=== PATIENT | female | born 1955 | race Caucasian/White ===

== ENCOUNTER 2016-12-03 22:57 | Emergency (ER) | payer OTHER ==
[~2016-12-03] VITALS: Ht 152.4 cm; Wt 127.0 kg
[~2016-12-03 22:57] MED LIST: ALBUTEROL INHALER; COQ10; HUMALOG100 UNIT/2 SQ; JANUVIA25 M1 PO; LANTUS 3 M100 UNITS1 SC; LANTUS100 UNIT/1 SQ; LOSARTAN; NABUMETONE500 M1 PO; POTASSIUM OTC; PRAVASTATIN SOD10 MG PO; TRANDOLAPRIL; VIT D; ZETIA10 MG PO; [UNRECOGNIZED DRUG - REMARK]
[2016-12-03] MEDS ORDERED: CLARITIN-D 21 TABLET PO (23:23)
[2016-12-03] MEDS ORDERED: FLONASE16 G1 BOTH NARES (23:23)
[2016-12-03 23:51] VITALS: BP 145/72
== END 2016-12-03 23:56 | disposition home or self-care (01) ==
LOC: EME 22:57 → RME 22:57
DX: H65.93 Unspecified nonsuppurative otitis media, bilateral (principal)
CPT/HCPCS: 99281; 99284

== ENCOUNTER 2018-01-25 10:20 | Observation (INO) | payer OTHER ==
[~2018-01-25] VITALS: Ht 152.4 cm; Wt 130.2 kg
[~2018-01-25 10:20] MED LIST changes: +CLARITIN-D 21 TABLET PO; +FLONASE16 G1 BOTH NARES; +HUMALOG100 UNIT/2 SC; -HUMALOG100 UNIT/2 SQ; +JANUVIA100 MG PO; -JANUVIA25 M1 PO
[2018-01-25 11:12] LABS: HEMATOCRIT 35.2 % (36.0-46.0); MCH 28.3 PG (29.0-34.0); MCHC 31.3 G/DL (30.0-36.0); MCV 90.5 FL (83-99); PLATELET COUNT 145 K/uL (156-360); RBC DIS.WIDTH-CV 14.2 % (11.8-14.6); RBC DIS.WIDTH-SD 47.1 % (39-53); RED BLOOD COUNT 3.89 M/uL (3.80-5.20)
[2018-01-25 11:21] LABS: CHLORIDE 105 mEq/L (99-109); POTASSIUM 3.7 mEq/L (3.7-5.4); SODIUM 142 mEq/L (136-147)
[2018-01-25 11:23] LABS: GLUCOSE 65 mg/dL (70-99)
[2018-01-25 11:27] LABS: CREATININE 1.4 mg/dL (0.6-1.3); GFR ESTIMATE (CALCULATED) 41 mL/min/
[2018-01-25 11:28] LABS: UREA NITROGEN (BUN) 39 mg/dL (9-23)
[2018-01-25 12:11] LABS: TROP-I INTERPRETATION NEGATIVE; TROPONIN-I 0.05 ng/mL (0.0-0.30)
[2018-01-25] MEDS ORDERED: K-TAB ER8 MEQ PO (14:54)
[2018-01-25] MEDS ORDERED: COENZYME Q1010 M1 PO (14:55)
[2018-01-25] MEDS ORDERED: HYZAAR 100-21 TABLET PO (14:56)
[2018-01-25] MEDS ORDERED: VITAMIN D31000 UNI2 PO (14:56)
[2018-01-25] MEDS ORDERED: NEURONTIN300 MG PO (14:59)
[2018-01-25] MEDS ORDERED: LANTUS 3 M100 UNITS1 SC (15:06)
[2018-01-25] MEDS ORDERED: LASIX20 MG PO (15:08)
[2018-01-25 15:30] LABS: MAGNESIUM 2.1 mg/dL (1.3-2.7)
[2018-01-25 15:35] LABS: PHOSPHORUS 2.7 mg/dL (2.5-4.9)
[2018-01-25] MEDS ORDERED: ADVIL,NUPRIN,M200 MG PO (15:36)
[2018-01-25] MEDS ORDERED: PEPCID20 MG PO (15:36)
[2018-01-25 16:46] VITALS: BP 142/71
[2018-01-25 17:19] LABS: TROP-I INTERPRETATION NEGATIVE; TROPONIN-I 0.06 ng/mL (0.0-0.30)
[2018-01-25 20:00] VITALS: BP 127/57
[2018-01-25 23:23] LABS: TROP-I INTERPRETATION NEGATIVE; TROPONIN-I 0.05 ng/mL (0.0-0.30)
[2018-01-26 01:02] VITALS: BP 135/71
[2018-01-26 06:06] LABS: HEMATOCRIT 34.4 % (36.0-46.0); HEMOGLOBIN 10.3 G/DL (11.9-15.5); MCH 27.2 PG (29.0-34.0); MCHC 29.9 G/DL (30.0-36.0); MCV 90.8 FL (83-99); PLATELET COUNT 127 K/uL (156-360); RBC DIS.WIDTH-CV 14.1 % (11.8-14.6); RBC DIS.WIDTH-SD 47.1 % (39-53); RED BLOOD COUNT 3.79 M/uL (3.80-5.20); WHITE BLOOD COUNT 7.3 K/uL (4.1-10.2)
[2018-01-26 06:23] LABS: CHLORIDE 104 MEQ/L (99-109); SODIUM 141 MEQ/L (136-147)
[2018-01-26 06:29] LABS: CREATININE 1.1 MG/DL (0.6-1.3); GFR ESTIMATE (CALCULATED) 54 mL/min/; UREA NITROGEN (BUN) 31 mg/dL (9-23)
[2018-01-26 06:30] LABS: GLUCOSE 87 mg/dL (70-99)
[2018-01-26 07:54] VITALS: BP 129/63
[2018-01-26 09:30] LABS: HEMOGLOBIN A1c (GLYCOHEMOGLOB) 8.5 % (Below 5.7)
[2018-01-26 16:13] VITALS: BP 111/59
[2018-01-26 20:00] VITALS: BP 96/50
[2018-01-26 20:30] VITALS: BP 118/56
[2018-01-26 23:11] VITALS: BP 105/51
[2018-01-27 04:15] VITALS: BP 113/52
[2018-01-27 08:20] VITALS: BP 126/59
[2018-01-27] MEDS ORDERED: LOPRESSOR25 MG PO (08:44)
[2018-01-27] MEDS ORDERED: SPIRONOLACTONE25 MG PO (08:45)
[2018-01-27] MEDS ORDERED: ASPIR-LOW81 MG PO (08:47)
== END 2018-01-27 10:17 | disposition home or self-care (01) ==
LOC: EME 10:20 → EDOF 13:40 → ENRESERV 13:43 → 5WEST 16:14
PROVIDERS: Hospitalist
DX: R06.09 Other forms of dyspnea (principal); I11.0 Hypertensive heart disease with heart failure; I50.9 Heart failure, unspecified; H65.90 Unspecified nonsuppurative otitis media, unspecified ear; N17.9 Acute kidney failure, unspecified; R06.01 Orthopnea; R60.0 Localized edema; E66.01 Morbid (severe) obesity due to excess calories; Z68.43 Body mass index [BMI] 50.0-59.9, adult; E11.9 Type 2 diabetes mellitus without complications; E78.5 Hyperlipidemia, unspecified; I25.10 Atherosclerotic heart disease of native coronary artery without angina pectoris; J45.909 Unspecified asthma, uncomplicated; Z87.01 Personal history of pneumonia (recurrent); Z90.49 Acquired absence of other specified parts of digestive tract; Z90.710 Acquired absence of both cervix and uterus; Z90.721 Acquired absence of ovaries, unilateral; Z88.8 Allergy status to other drugs, medicaments and biological substances; Z91.018 Allergy to other foods; Z82.49 Family history of ischemic heart disease and other diseases of the circulatory system; Z83.3 Family history of diabetes mellitus; Z82.3 Family history of stroke
CPT/HCPCS: 71046; 78582; 80048; 82948; 83036; 83735; 83880; 84100; 84484; 85027; 93005; 93970; 99281; 99284; A9540; A9567; G0378; J1644; J1940

== ENCOUNTER → 2018-03-22 | Outpatient (CLI) | payer OTHER ==
[~2018-03-22] MED LIST changes: +ADVIL,NUPRIN,M200 MG PO; +ASPIR-LOW81 MG PO; +COENZYME Q1010 M1 PO; +HYZAAR 100-21 TABLET PO; +K-TAB ER8 MEQ PO; +LASIX20 MG PO; +LOPRESSOR25 MG PO; +NEURONTIN300 MG PO; +PEPCID20 MG PO; +SPIRONOLACTONE25 MG PO; +VITAMIN D31000 UNI2 PO
== END | disposition home or self-care (01) ==
LOC: RES 08:35
DX: J98.4 Other disorders of lung (principal); R94.2 Abnormal results of pulmonary function studies
CPT/HCPCS: 94070; 94726; 94729